=== PATIENT | male | born 1940 | race African-American/Black ===

== ENCOUNTER 2023-08-11 09:52 | Emergency (ER) | payer MEDICARE, BC ==
[~2023-08-11] VITALS: Ht 190.5 cm; Wt 81.0 kg
[2023-08-11 10:01] VITALS: O2SAT 98
[2023-08-11 10:37] LABS: CHLORIDE 107 mEq/L (98-107); INDEX HEMOLYSI 1 (1-3); INDEX ICTERIC 2 (1-4); INDEX LIPEMIC 1 (1-3); POTASSIUM 4.4 mEq/L (3.5-5.1); SODIUM 138 mEq/L (136-145)
[2023-08-11 10:46] LABS: ALANINE AMINOTRANSFERASE 21 IU/L (13-61); ALBUMIN 2.8 g/dL (3.4-5.0); ASPARTATE AMINOTRANSFERASE 20 IU/L (15-37); CARBON DIOXIDE 25 mEq/L (21-32); PROTEIN TOTAL 7.5 g/dL (6.0-8.3); UREA NITROGEN BLOOD 38 mg/dL (7-21)
[2023-08-11 10:59] LABS: HEMATOCRIT. 25.9 % (42.0-52.0); MEAN CORPUSCULAR HEMOGLOBIN 28.6 pg (28.0-32.0); MEAN CORPUSCULAR HGB CONC 34.8 g/dL (31.0-37.0); MEAN CORPUSCULAR VOLUME 82.2 fL (80.0-94.0); MEAN PLATELET VOLUME 8.3 fl (7.4-10.4); PLATELET 338 x1000/uL (130-400); RED BLOOD CELL COUNT 3.15 mill/uL (4.7-6.1); RED CELL DISTRIBUTION WIDTH 14.4 % (11.6-14.6); WHITE BLOOD COUNT 9.2 x1000/uL (4.5-11.0)
[2023-08-11 11:03] LABS: DIFFERENTIAL COMMENT 1
[2023-08-11 11:06] LABS: GLUCOSE 415 mg/dL (70-105)
[2023-08-11] MEDS ORDERED: SODIUM CHLORIDE 0.9% 1,000 ML IV ONE (11:30)
[2023-08-11 11:40] LABS: PLATELET ESTIMATE NORMAL
[2023-08-11 11:58] LABS: CLARITY URINE CLOUDY (CLEAR); COLOR URINE YELLOW (YELLOW); GLUCOSE URINE 3+ (NEGATIVE); KETONES URINE TRACE (NEGATIVE); LEUKOCYTE ESTERASE URINE 1+ (NEGATIVE); NITRITE URINE POSITIVE (NEGATIVE); OCCULT BLOOD URINE 1+ (NEGATIVE); PH URINE 5.5 (4.5-8.0); PROTEIN URINE 1+ (NEGATIVE); SPECIFIC GRAVITY URINE 1.014 (1.005-1.030); UROBILINOGEN URINE 0.2 E.U./dL (0.2-1.0)
[2023-08-11 12:02] LABS: YEAST URINE NONE SEEN
[2023-08-11 12:18] LABS: SQUAMOUS EPITHELIAL CELL URINE FEW /lpf (RARE/1+); WBC URINE 15-25 /hpf (0-2)
[2023-08-11 12:19] LABS: BACTERIA URINE 3+
[2023-08-11 12:30] VITALS: BP 172/82; PULSE 91; RESP 16; TEMP 97.8
[2023-08-11] MEDS ORDERED: CEFTRIAXONE 1GM PREMIX 50 ML IV ONE (13:15)
[2023-08-11] MEDS ORDERED: INSULIN REGULAR (HUMULIN R) 300UNITS/3ML VIAL SUBCUT ONE (13:15)
[2023-08-11] MEDS ORDERED: ACETAMINOPHEN 325MG TABLET PO PRN (15:45)
[2023-08-11] MEDS ORDERED: CLONIDINE 0.1MG TABLET PO PRN (15:45)
[2023-08-11] MEDS ORDERED: CEFTRIAXONE 1GM PREMIX 50 ML IV SCH (15:45)
[2023-08-11] MEDS ORDERED: IPRATROPIUM/ALBUTEROL 0.5-3(2.5)MG/3ML NEB HHN PRN (15:45)
[2023-08-11] MEDS ORDERED: DEXTROSE 50% WATER 50ML SYRINGE IV PRN ×2 (16:00→16:15)
[2023-08-11] MEDS ORDERED: MVI, ADULT NO.1 10 ML, FOLIC ACID 1 MG, THIAMINE HCL 100 MG in SODIUM CHLORIDE 0.9% 1,0... IV ONE ×4 (16:00)
[2023-08-11] MEDS ORDERED: BLOOD SUGAR DIAGNOSTIC STRIP TEST SCH ×2 (17:00)
[2023-08-11] MEDS ORDERED: AMLODIPINE 2.5MG TABLET PO SCH (18:15)
[2023-08-11] MEDS ORDERED: AMLODIPINE 5MG TABLET PO SCH (18:15)
[2023-08-11] MEDS ORDERED: INSULIN LISPRO (MEDIUM DOSE) 100 UNITS/ML SUBCUT SCH (18:20)
[2023-08-11] MEDS ORDERED: INSULIN GLARGINE 100 UNITS/ML SUBCUT SCH (22:00)
[2023-08-12] MEDS ORDERED: CEFTRIAXONE 1,000 MG in DEXTROSE 5% WATER 50 ML IV SCH (09:00)
[2023-08-12] MEDS ORDERED: INSULIN LISPRO 100 UNITS/ML SUBCUT SCH (12:50)
== END 2023-08-11 22:50 | disposition left against medical advice (07) ==
LOC: ER 09:52 → EDBEDREQ 11:39 → ER 22:50
DX: E11.65 Type 2 diabetes mellitus with hyperglycemia (principal); E86.0 Dehydration; N30.00 Acute cystitis without hematuria; I10 Essential (primary) hypertension
CPT/HCPCS: 99285; 96365; 71045; 96361; 80053; 81003; 82010; 83036; 85025; 87086; 36415; 93005; J0696; J3490 ×2; J3411; J7030; J1815